=== PATIENT | female | born 1950 | race Caucasian/White ===

== ENCOUNTER → 2016-08-11 | Outpatient (CLI) | payer OTHER ==
[2016-08-11 11:30] LABS: BASOPHILS # (AUTO) 0.01 10*3/UL; BASOPHILS % (AUTO) 0.2 % (0-1); EOSINOPHILS % (AUTO) 0 % (0-8); HEMATOCRIT 40.2 % (37.0-47.0); HEMOGLOBIN 13.3 g/dL (12.0-16.0); IMM GRAN % (AUTO) 0.2 % (0-5); IMM GRAN# (AUTO) 0.01 10*3/UL; LYMPHOCYTES # (AUTO) 1.22 10*3/uL; LYMPHOCYTES % (AUTO) 24.4 % (10-50); MEAN CORPUSCULAR HEMOGLOBIN 30.6 PG (27-31); MEAN CORPUSCULAR HGB CONC 33.1 g/dL (33-37); MEAN PLATELET VOLUME 9.7 FL (7.4-12.2); MONOCYTES # (AUTO) 0.46 10*3/UL (0.3-0.8); MONOCYTES % (AUTO) 9.2 % (5-15); NEUTROPHILS # (AUTO) 3.29 10*3/UL; RDW COEFFICIENT OF VARIATION 14.2 % (11.5-14.5); RED BLOOD COUNT 4.34 10^6/uL (4.20-5.40); WHITE BLOOD COUNT 4.99 10^3/uL (4.8-10.8)
[2016-08-11 11:35] LABS: PLATELET MORPHOLOGY COMMENT NORMAL MORPHOLOGY (NORM)
== END ==
LOC: LAB 11:11
PROVIDERS: ATTEND Internal Medicine
DX: F25.1 Schizoaffective disorder, depressive type (principal)
CPT/HCPCS: 36415; 85025

== ENCOUNTER → 2016-09-15 | Outpatient (CLI) | payer OTHER ==
[2016-09-15 09:57] LABS: BASOPHILS # (AUTO) 0.01 10*3/UL; BASOPHILS % (AUTO) 0.2 % (0-1); EOSINOPHILS % (AUTO) 0 % (0-8); HEMATOCRIT 40.7 % (37.0-47.0); HEMOGLOBIN 13.3 g/dL (12.0-16.0); IMM GRAN % (AUTO) 0.2 % (0-5); IMM GRAN# (AUTO) 0.01 10*3/UL; LYMPHOCYTES # (AUTO) 1.42 10*3/uL; MEAN CORPUSCULAR HGB CONC 32.7 g/dL (33-37); MONOCYTES # (AUTO) 0.42 10*3/UL (0.3-0.8); MONOCYTES % (AUTO) 8.6 % (5-15); NEUTROPHILS # (AUTO) 3.04 10*3/UL; RDW COEFFICIENT OF VARIATION 13.8 % (11.5-14.5); RED BLOOD COUNT 4.43 10^6/uL (4.20-5.40)
[2016-09-15 10:02] LABS: PLATELET MORPHOLOGY COMMENT NORMAL MORPHOLOGY (NORM)
== END ==
LOC: LAB 09:41
PROVIDERS: ATTEND Psychiatry & Neurology Psychiatry
DX: F25.1 Schizoaffective disorder, depressive type (principal); Z79.899 Other long term (current) drug therapy
CPT/HCPCS: 36415; 85025

== ENCOUNTER → 2016-09-29 | Outpatient (CLI) | payer OTHER | LOC: MMPC 11:11 | PROVIDERS: ATTEND Internal Medicine | DX: F20.0 Paranoid schizophrenia (principal); K59.09 Other constipation; C44.319 Basal cell carcinoma of skin of other parts of face | CPT/HCPCS: 99213; G0463 ==

== ENCOUNTER → 2016-10-13 | Outpatient (CLI) | payer OTHER ==
[2016-10-13 07:12] LABS: HEMATOCRIT 43.4 % (37.0-47.0); HEMOGLOBIN 14.2 g/dL (12.0-16.0); MEAN CORPUSCULAR HGB CONC 32.7 g/dL (33-37); MEAN PLATELET VOLUME 9.6 FL (7.4-12.2); RDW COEFFICIENT OF VARIATION 14.5 % (11.5-14.5); RED BLOOD COUNT 4.74 10^6/uL (4.20-5.40); WHITE BLOOD COUNT 6.62 10^3/uL (4.8-10.8)
[2016-10-13 07:33] LABS: BAND NEUTROPHILS % 0 % (0-10); BASOPHILS % (MANUAL) 0 % (0-1); EOSINOPHILS % (MANUAL) 0 % (0-8); LYMPHOCYTES % (MANUAL) 23 % (10-50); MONOCYTES % (MANUAL) 13 % (0-12); NEUTROPHILS % (MANUAL) 64 % (50-80); PLATELET MORPHOLOGY COMMENT NORMAL MORPHOLOGY (NORM)
== END ==
LOC: LAB 06:57
PROVIDERS: ATTEND Psychiatry & Neurology Psychiatry
DX: F25.1 Schizoaffective disorder, depressive type (principal)
CPT/HCPCS: 36415; 85007

== ENCOUNTER 2016-10-14 10:51 | Emergency (ER) | payer OTHER ==
[2016-10-14 11:41] VITALS: RESP 18; TEMP 98.8
[2016-10-14 11:56] LABS: BASOPHILS # (AUTO) 0.01 10*3/UL; BASOPHILS % (AUTO) 0.2 % (0-1); EOSINOPHILS % (AUTO) 0 % (0-8); HEMATOCRIT 42.4 % (37.0-47.0); HEMOGLOBIN 13.9 g/dL (12.0-16.0); IMM GRAN % (AUTO) 0.2 % (0-5); IMM GRAN# (AUTO) 0.01 10*3/UL; LYMPHOCYTES # (AUTO) 1.02 10*3/uL; LYMPHOCYTES % (AUTO) 15.5 % (10-50); MEAN CORPUSCULAR HGB CONC 32.8 g/dL (33-37); MEAN PLATELET VOLUME 10.2 FL (7.4-12.2); MONOCYTES # (AUTO) 0.62 10*3/UL (0.3-0.8); MONOCYTES % (AUTO) 9.4 % (5-15); NEUTROPHILS # (AUTO) 4.93 10*3/UL; NEUTROPHILS % (AUTO) 74.7 % (50-80); RDW COEFFICIENT OF VARIATION 14.4 % (11.5-14.5); RED BLOOD COUNT 4.64 10^6/uL (4.20-5.40); WHITE BLOOD COUNT 6.59 10^3/uL (4.8-10.8)
[2016-10-14 12:02] LABS: BILIRUBIN,TOTAL 0.6 mg/dL (0.3-1.2); CALCIUM 10.4 mg/dL (8.7-10.7); TOTAL PROTEIN 7.4 g/dL (6.1-8.0)
[2016-10-14 12:07] LABS: PLATELET MORPHOLOGY COMMENT NORMAL MORPHOLOGY (NORM)
[2016-10-14] MEDS ORDERED: Sodium Chloride 0.9% 1,000 ML PRIMARY IV ONE (12:09)
--- NOTE | 2016-10-14 21:44 | PDOC ---
Dizziness HPI - General Chief Complaint: Neurological Complaints Stated Complaint: FEELS DIZZY & UNCOORDINATED Date Seen by Provider: 10/14/16 Time Seen by Provider: 10:55 - History of Present Illness Initial Comments: Patient is a very nice 65-year-old woman who is an unfortunate suffer of schizophrenia. She had a long stay in the [facility] and perineal lady was recently released from there. She since that time has been on some lithium that she was encouraged to take by [facility]. In the past she's had difficulty taking lithium. Now she's developed some substantial motor fasciculations and some weakness and different facial tics. She attributes this to the lithium. She has been stable on her other medications for some time. She denies any other substantial symptoms i.e. fever other neurologic issues or problems nausea vomiting urinary symptoms or any other concerns. - Patient Home Medications Home Medications: Home Medications Olanzapine [Zyprexa] 20 mg PO DAILY tab 06/11/16 Benztropine Mesylate [Cogentin] 1 mg PO BID 07/15/16 Clozapine 200 mg PO BID 07/15/16 Bacillus Coagulans [Probiotic] 1 each PO cap 07/29/16 Calcium Carbonate [Tums] 3 tab PO QHS tab 07/29/16 Famotidine [Pepcid] 1 tab-cap PO DAILY #90 tab 07/29/16 Multivitamin [Daily Siva] 1 tab PO DAILY tab 07/29/16 Polyethylene Glycol 3350 [Miralax] 1 packet PO DAILY #1 box 07/29/16 - Patient Allergies Allergies/Adverse Reactions: Allergies Allergy/AdvReac Type Severity Reaction Status Date / Time Penicillins Allergy Intermediate SYNCOPAL Verified 10/14/16 11:50 EPISODES Past Medical History - heen HEENT History: Denies History Cardiovascular History: Denies History Respiratory History: Denies History Gastrointestinal History: Denies History Genitourinary History: Denies History Endocrine History: Denies History Musculoskeletal History: Denies History Prosthesis or Implant: No Neurological History: Denies History Blood Disorders: Denies History Psychiatric History: Schizophrenia Additional Psychiatric History: Paranoid Schizophrenia Cancer History: Skin Cancer Treatment / Date(s) of Treatment: REMOVAL UNKNOWN WHEN In Past Year Been Physically Harmed or Verbally Threatened: No History of MDRO: No Tobacco Use: Never Smoker Alcohol Use: None Substance Use Type: None Previous Surgical History: Yes Type / Date of Surgery: CA REMOVAL Significant Family History: No pertinent family hx Past Medical History Reviewed: Reviewed - No Changes ROS - Limitations ROS Limitations: No Limitations Constitution: REPORTS: Denies Symptoms Cardiovascular: REPORTS: Denies Cardiac Symptoms Respiratory: REPORTS: Denies Resp Symptoms Gastrointestinal: REPORTS: Denies GI Symptoms Dizziness PE - General Appearance General Appearance: POSITIVE: No Acute Distress - HEENT HEENT: POSITIVE: Head Inspection Nml, Eyes Inspection Nml - Neck Neck: POSITIVE: Supple - Respiratory Respiratory: POSITIVE: No Respiratory Distress, Breath Sounds Normal - Cardiovascular Cardiovascular: POSITIVE: Regular Rate & Rhythm, No Murmur - Abdomen Abdomen: Soft: (All Quadrants), Normal Bowel Sounds: (RUQ), (All Quadrants), Denies Tenderness: (All Quadrants) - Skin Skin: POSITIVE: Intact, Normal For Race - Neuro/Psych Neuro/Psych: POSITIVE: Other (Patient has normal movement intact. She has a bit of tremor noted in her upper extremities. She also has diffuse fasciculations occasionally and some facial tics.) Dizziness Progress - Results Reviewed by me Lab Results Reviewed: Yes Lab Results:: Laboratory Results 10/14/16 Range/Units 11:10 WBC 6.59 (4.8-10.8) 10^3/uL RBC 4.64 (4.20-5.40) 10^6/uL Hgb 13.9 (12.0-16.0) g/dL Hct 42.4 (37.0-47.0) % MCV 91.4 (81-99) FL MCH 30.0 (27-31) PG MCHC 32.8 L (33-37) g/dL RDW Std Deviation 47.2 (39-50) fL RDW Coeff of Fawad 14.4 (11.5-14.5) % Plt Count 228 (140-350) 10*3/uL MPV 10.2 (7.4-12.2) FL Immature Gran % (Auto) 0.2 (0-5) % Neut % (Auto) 74.7 (50-80) % Lymph % (Auto) 15.5 (10-50) % [place] % (Auto) 9.4 (5-15) % Eos % (Auto) 0 (0-8) % Baso % (Auto) 0.2 (0-1) % Immature Gran # (Auto) 0.01 10*3/UL Neut # (Auto) 4.93 10*3/UL Lymph # (Auto) 1.02 10*3/uL [place] # (Auto) 0.62 (0.3-0.8) 10*3/UL Eos # (Auto) 0 10*3/UL Baso # (Auto) 0.01 10*3/UL WBC Morphology Comment Normal morphology (NORM) Plt Morphology Comment Normal morphology (NORM) RBC Morph Comment Normal morphology (NORM) Sodium 142 (135-145) meq/L Potassium 4.0 (3.8-5.2) meq/L Chloride 104 (98-112) meq/L Carbon Dioxide 26 (23-33) meq/L Anion Gap 12 (5-20) BUN 19 (7-22) mg/dL Creatinine 1.0 (0.50-1.20) mg/dL Estimated GFR 55 (>60 ml/min/1.73m(2)) BUN/Creatinine Ratio 19.00 (6-20) Glucose 95 (78-110) mg/dL Calculated Osmolality 295.0 H (267-292) mOsm/kg Calcium 10.4 (8.7-10.7) mg/dL Total Bilirubin 0.6 (0.3-1.2) mg/dL AST 40 H (8-39) IU/L ALT 54 H (9-52) IU/L Alkaline Phosphatase 118 (38-126) IU/L Total Protein 7.4 (6.1-8.0) g/dL Albumin 4.4 (3.5-4.8) g/dL Globulin 3.0 (2.50-4.10) g/dL Albumin/Globulin Ratio 1.40 (1.3-2.0) mg/g TSH 2.51 (0.2700-4.2000) uIU/mL - Patient's Progress MDM / ED Course: Labs were performed to rule out electrolyte abnormalities or any obvious other issues. These all appear benign. This is likely related to her lithium therapy. Have asked her stop taking lithium lithium level is pending but is a send out here. She will hopefully resolve simply with the cessation of the lithium. Not she knows she needs to be reevaluated by her primary care provider and her psychiatrist. Patient Care Time - Estimated PCT Patient Care Time (In Minutes): 20 Vital Signs - VS Reviewed Vital Signs Reviewed: Yes Discharge Clinical Impression: Drug reaction Discharge Disposition: Discharged to Home Condition: Good Patient Instructions Given at Discharge: Adverse Drug Reaction (ED) Additional Instructions: Stop taking lithium Discuss your medication regimen with your primary care provider Follow-up with your primary care provider in the next couple of days Have your primary care provider review the lithium level that was taken here today see your psychiatrist as soon as possible to discuss your stoppage of lithium and to consider other medication changes Follow Up With: NONE,NONE [Primary Care Provider] -
== END 2016-10-14 13:17 | disposition home or self-care (01) ==
LOC: ER 10:51
DX: T43.595A Adverse effect of other antipsychotics and neuroleptics, initial encounter (principal); F20.0 Paranoid schizophrenia; R42 Dizziness and giddiness
CPT/HCPCS: 80053; 80178; 84443; 85025; 99282; J7030

== ENCOUNTER 2016-10-16 10:28 | Emergency (ER) | payer OTHER ==
[2016-10-16 10:50] VITALS: RESP 20; TEMP 97.1
[2016-10-16] MEDS ORDERED: Sodium Chloride 0.9% 1,000 ML PRIMARY IV ONE (10:59)
--- NOTE | 2016-10-16 11:03 | PDOC ---
Gen Adult / Medical Screen HPI - General Chief Complaint: General Medical Stated Complaint: FORGETFULNESS, UNSTEADY ON HER FEET Date Seen by Provider: 10/16/16 Time Seen by Provider: 11:02 Source: POSITIVE: Patient, [facility] records Exam Limitations: POSITIVE: No limitations Nurse's Notes Reviewed & Considered: Yes - Indicators Temperature Between 95 and 101 Degrees: Yes Respirations Between 12 and 20: Yes Blood Pressure Between 100-165 (sys) and 60-100 (zacarias): Yes Pulse Range Between 60-105 (100 for age > 60 years): Yes Severe Pain (Greater than 5/10 Reported): No Chest or Abdominal Pain: No Inability to Walk: Yes (difficulty walking) Pt Reports Active High Risk Cond. (TB/Hepatitis/HIV/Chemo): No Abnormal Mental Status: Yes (ration alert and oriented to person and place.) - History of Present Illness Initial Comments: Patient is brought in today because of increasing signs of neurological impairment. She is presently having tics of her face and extremities. Her lithium was stopped a few days ago at the time she was seen here in the emergency department. Her lithium level at that time was 0.7. Her son reports that years ago in the past she was on lithium and that she did not tolerate lithium at all, with similar symptoms as being experienced now. She denies any headache, sore throat, chest pain, shortness of breath, she does have a slight cough. She denies any nausea vomiting or diarrhea, fever chills or sweats, no rashes. She does have decreased urine output with dark colored urine. She denies dysuria. Body Location Affected: REPORTS: Upper Extremity (L), Upper Extremity (R), Lower Extremity (L), Lower Extremity (R), Face Timing: REPORTS: Constant Duration: Unknown Similar Symptoms Previously: Yes Recent Care Received: REPORTS: Recently Seen, Treated by MD Any Prior Injuries Related to Current Complaint?: No - Patient Home Medications Home Medications: Home Medications Olanzapine [Zyprexa] 20 mg PO DAILY tab 06/11/16 Benztropine Mesylate [Cogentin] 1 mg PO BID 07/15/16 Clozapine 200 mg PO BID 07/15/16 Bacillus Coagulans [Probiotic] 1 each PO DAILY cap 07/29/16 Calcium Carbonate [Tums] 3 tab PO QHS tab 07/29/16 Famotidine [Pepcid] 1 tab-cap PO DAILY #90 tab 07/29/16 Multivitamin [Daily Siva] 1 tab PO DAILY tab 07/29/16 Polyethylene Glycol 3350 [Miralax] 1 packet PO DAILY #1 box 07/29/16 - Patient Allergies Allergies/Adverse Reactions: Allergies Allergy/AdvReac Type Severity Reaction Status Date / Time Penicillins Allergy Intermediate SYNCOPAL Verified 10/16/16 10:38 EPISODES Past Medical History - heen HEENT History: Denies History Cardiovascular History: Denies History Respiratory History: Denies History Gastrointestinal History: GERD Genitourinary History: Denies History Endocrine History: Denies History Musculoskeletal History: Denies History Prosthesis or Implant: No Neurological History: Denies History Blood Disorders: Denies History Psychiatric History: Schizophrenia Additional Psychiatric History: Paranoid Schizophrenia Cancer History: Skin Cancer Treatment / Date(s) of Treatment: REMOVAL UNKNOWN WHEN In Past Year Been Physically Harmed or Verbally Threatened: No History of MDRO: No Tobacco Use: Never Smoker Alcohol Use: None Substance Use Type: None Previous Surgical History: Yes Type / Date of Surgery: CA REMOVAL LEFT SIDE OF FACE. LEFT ARM SURGERY Significant Family History: No pertinent family hx ROS - Limitations ROS Limitations: No Limitations Constitution: REPORTS: Denies Symptoms Cardiovascular: REPORTS: Denies Cardiac Symptoms Respiratory: REPORTS: Cough Non Productive Neurological: REPORTS: Confusion, Other (Facial and extremity tics) Gastrointestinal: REPORTS: Denies GI Symptoms Endocrine: REPORTS: Denies Symptoms Musculoskeletal: REPORTS: Denies MS Symptoms Genitourinary: REPORTS: Denies Symptoms Skin: REPORTS: Denies Skin Symptoms Lympathic: REPORTS: Denies Lympathic Symptoms Immunologic: POSITIVE: Denies Symptoms Psychiatric: POSITIVE: Denies Psych Symptoms Gen Adult/Medical Screen Exam - General Appearance General Appearance: POSITIVE: Alert, Cooperative, No Acute Distress, No Evidence of Trauma - HEENT HEENT: POSITIVE: Head Inspection Nml, Eyes Inspection Nml, Ears Inspection Nml, Nose Inspection Nml, Oral/Dental Inspect. Nml, Pharynx Inspect. Nml, PERRL, EOMI - Pupils Pupil Size: 3 mm: Bilateral - Neck Neck: POSITIVE: Normal Inspection, Thyroid Normal - Respiratory Respiratory: POSITIVE: No Respiratory Distress, Breath Sounds Normal, Chest Non- Tender - Cardiovascular Cardiovascular: POSITIVE: Regular Rate & Rhythm, No Murmur, No Gallop, PMI Normal - Abdomen Abdomen: Soft: (All Quadrants), Normal Bowel Sounds: (All Quadrants), Denies Tenderness: (All Quadrants) - Back Back: POSITIVE: Normal Inspection - Neurological / Psychological Mental Status: POSITIVE: Mood Normal, Affect Normal Orientation: POSITIVE: Disoriented to Time Reflexes: Patellar (R): 4+, Patellar (L): 4+, Radial (R): 4+, Radial (L): 4+ - Skin Skin: POSITIVE: Normal Color, Warm, Dry, No Rash - Extremities Extremity: Non-Tender: (All Extremities), Normal ROM: (All Extremities), Normal Inspection: (All Extremities) Procedures - Laceration/Wound Repair Did patient have a laceration repair: No Gen Adlt/Medical Scrn Progress - Results Reviewed by me Xrays/CTs/US Reviewed by me: Yes Discussed with Radiologist: Yes Lab Results Reviewed: Yes Lab Results:: Laboratory Results 10/16/16 Range/Units 11:13 WBC 5.54 (4.8-10.8) 10^3/uL RBC 4.37 (4.20-5.40) 10^6/uL Hgb 13.0 (12.0-16.0) g/dL Hct 39.8 (37.0-47.0) % MCV 91.1 (81-99) FL MCH 29.7 (27-31) PG MCHC 32.7 L (33-37) g/dL RDW Std Deviation 46.4 (39-50) fL RDW Coeff of Fawad 14.3 (11.5-14.5) % Plt Count 232 (140-350) 10*3/uL MPV 9.8 (7.4-12.2) FL Immature Gran % (Auto) 0 (0-5) % Neut % (Auto) 72.3 (50-80) % Lymph % (Auto) 16.1 (10-50) % [place] % (Auto) 11.4 (5-15) % Eos % (Auto) 0 (0-8) % Baso % (Auto) 0.2 (0-1) % Immature Gran # (Auto) 0 10*3/UL Neut # (Auto) 4.01 10*3/UL Lymph # (Auto) 0.89 10*3/uL [place] # (Auto) 0.63 (0.3-0.8) 10*3/UL Eos # (Auto) 0 10*3/UL Baso # (Auto) 0.01 10*3/UL WBC Morphology Comment Normal morphology (NORM) Plt Morphology Comment Normal morphology (NORM) RBC Morph Comment Normal morphology (NORM) Sodium 138 (135-145) meq/L Potassium 4.6 (3.8-5.2) meq/L Chloride 103 (98-112) meq/L Carbon Dioxide 26 (23-33) meq/L Anion Gap 9 (5-20) BUN 21 (7-22) mg/dL Creatinine 1.0 (0.50-1.20) mg/dL Estimated GFR 55 (>60 ml/min/1.73m(2)) BUN/Creatinine Ratio 21.00 H (6-20) Glucose 106 (78-110) mg/dL Calculated Osmolality 288.0 (267-292) mOsm/kg Calcium 10.0 (8.7-10.7) mg/dL Magnesium 2.2 (1.6-2.4) mg/dL Total Bilirubin 0.5 (0.3-1.2) mg/dL AST 37 (8-39) IU/L ALT 47 (9-52) IU/L Alkaline Phosphatase 102 (38-126) IU/L Total Protein 6.5 (6.1-8.0) g/dL Albumin 4.0 (3.5-4.8) g/dL Globulin 2.4 L (2.50-4.10) g/dL Albumin/Globulin Ratio 1.60 (1.3-2.0) mg/g - Patient's Progress Pain Medication Addressed: POSITIVE: Not Applicable Re-Examine Time: 12:03 Status: POSITIVE: Improved MDM / ED Course: Patient was evaluated, an IV started, blood drawn and sent to the lab for studies, radiographic examinations were obtained. Next Findings: CBC is unremarkable, comprehensive metabolic panel within normal limits, CT scan of her head shows no acute intracranial abnormalities. Assessment:Tics related to lithium intolerance. Plan: Discharge home, stop lithium. Follow-up with primary care physician. - Consult Counseled: POSITIVE: Patient, RE: Lab Results, RE: Radiology Results, RE: DX, RE : Need for F/U Patient Care Time - Estimated PCT Patient Care Time (In Minutes): 30 Vital Signs - Recent Vital Signs Vital Signs: Vital Signs (Last 8 hours) Temp Pulse Resp BP Pulse Ox 10/16/16 10:43 97.1 F 84 20 112/78 97 - VS Reviewed Vital Signs Reviewed: Yes Discharge Clinical Impression: Drug-induced tics Discharge Disposition: Discharged to Home Condition: Stable Patient Instructions Given at Discharge: Tic Disorder (ED)
[2016-10-16 11:16] LABS: BASOPHILS # (AUTO) 0.01 10*3/UL; BASOPHILS % (AUTO) 0.2 % (0-1); EOSINOPHILS % (AUTO) 0 % (0-8); HEMATOCRIT 39.8 % (37.0-47.0); IMM GRAN % (AUTO) 0 % (0-5); IMM GRAN# (AUTO) 0 10*3/UL; LYMPHOCYTES # (AUTO) 0.89 10*3/uL; LYMPHOCYTES % (AUTO) 16.1 % (10-50); MEAN CORPUSCULAR HEMOGLOBIN 29.7 PG (27-31); MEAN CORPUSCULAR HGB CONC 32.7 g/dL (33-37); MEAN PLATELET VOLUME 9.8 FL (7.4-12.2); MONOCYTES # (AUTO) 0.63 10*3/UL (0.3-0.8); MONOCYTES % (AUTO) 11.4 % (5-15); NEUTROPHILS # (AUTO) 4.01 10*3/UL; NEUTROPHILS % (AUTO) 72.3 % (50-80); RDW COEFFICIENT OF VARIATION 14.3 % (11.5-14.5); RED BLOOD COUNT 4.37 10^6/uL (4.20-5.40); WHITE BLOOD COUNT 5.54 10^3/uL (4.8-10.8)
[2016-10-16 11:22] LABS: PLATELET MORPHOLOGY COMMENT NORMAL MORPHOLOGY (NORM)
[2016-10-16 11:42] LABS: BILIRUBIN,TOTAL 0.5 mg/dL (0.3-1.2); MAGNESIUM 2.2 mg/dL (1.6-2.4); POTASSIUM 4.6 meq/L (3.8-5.2); TOTAL PROTEIN 6.5 g/dL (6.1-8.0)
[2016-10-16] MEDS ORDERED: LORazepam 2 MG/1 ML VIAL IVP ONE (12:02)
[2016-10-16] MEDS ORDERED: LORazepam 2 MG/1 ML VIAL ONE (12:04)
--- NOTE | 2016-10-16 12:08 | DI ---
CT HEAD SCAN WITHOUT IV CONTRAST, 10/16/2016 10:59 AM : Clinical History: Acute mental status change. Previous Exam: None at this facility. Scans are obtained from the foramen magnum to the vertex without IV contrast. The 4th, 3rd, and lateral ventricles are of normal size, shape, position, and contour for the patient 's age. There are no abnormal areas of increased or decreased density. Specifically, there is no evid ence of an acute hemorrhagic or bland infarct. There is mild cerebral atrophy. There are no extracere bral mantles or shift of the midline structures. Bone window evaluation is normal. The paranasal sinu ses are normal. READIN. Normal non contrast CT head scan. 2. Mild cerebral atrophy appropriate for the patient's age.
== END 2016-10-16 12:35 | disposition home or self-care (01) ==
LOC: ER 10:28
DX: G25.61 Drug induced tics (principal); T43.595A Adverse effect of other antipsychotics and neuroleptics, initial encounter
CPT/HCPCS: 70450; 80053; 80178; 83735; 84443; 85025; 96361; 96374; 99283; J2060; J7030

== ENCOUNTER → 2016-10-21 | Outpatient (CLI) | payer OTHER | LOC: MMPC 11:11 | PROVIDERS: ATTEND Internal Medicine | DX: T56.891D Toxic effect of other metals, accidental (unintentional), subsequent encounter (principal); F20.0 Paranoid schizophrenia; K59.09 Other constipation | CPT/HCPCS: 99213; G0463 ==

== ENCOUNTER 2016-11-04 09:02 | Emergency (ER) | payer OTHER ==
[2016-11-04] MEDS ORDERED: cefTRIAXone Inj 1 GM in Sodium Chloride 0.9% 100 ML IV ONE (09:24)
[2016-11-04 09:28] VITALS: RESP 16; TEMP 97.6
[2016-11-04] MEDS: NORMAL SALINE 10 ML SYRINGE FLUSH IVP PRN ×2 (09:29→10:18)
--- NOTE | 2016-11-04 09:51 | PDOC ---
Sore Throat/Dental Pain HPI - General Chief Complaint: Nasal/Mouth Problem /Injury Stated Complaint: DENTAL PAIN Date Seen by Provider: 11/04/16 Time Seen by Provider: 09:05 Source: POSITIVE: Patient, Other ([employer] from a [facility] at which patient resides) Exam Limitations: POSITIVE: No limitations Nurse's Notes Reviewed & Considered: Yes - History of Present Illness Initial Comments: The patient is a 65-year-old female. She has a history of schizophrenia and is presently a resident at a local [facility]. For the past 2 months, approximately, she has had pain in her left upper teeth. She saw her dentist yesterday and she and her dentist or trying to make financial arrangements, apparently for dental extraction. Yesterday she developed swelling to the left side of her face below her eye. She has some subsequent left lower periorbital edema. No fevers or chills. No head or neck pain. No difficulty swallowing or breathing. Location: Dental (Upper) Timing: REPORTS: Gradual, Getting Worse Duration: >1 week (Symptomatic for approximately 2 weeks) Severity: Moderate Quality: REPORTS: "Pain" Context: DENIES: Foreign Body, Ingestion, Fractured Tooth, Other Modifying Factors: improves with: Other (Direct palpation) Associated Symptoms: REPORTS: Toothache (Left upper), Facial Pain (Left side of face), Swollen Face (Left side of face) Similar Symptoms Previously: Yes Recently seen/treated/hospitalized: Yes Any Prior Injuries Related to Current Complaint?: No - Patient Home Medications Home Medications: Home Medications Olanzapine [Zyprexa] 20 mg PO DAILY tab 06/11/16 Benztropine Mesylate [Cogentin] 1 mg PO BID 07/15/16 Clozapine 200 mg PO BID 07/15/16 Bacillus Coagulans [Probiotic] 1 each PO DAILY cap 07/29/16 Calcium Carbonate [Tums] 3 tab PO QHS tab 07/29/16 Famotidine [Pepcid] 1 tab-cap PO DAILY #90 tab 07/29/16 Multivitamin [Daily Siva] 1 tab PO DAILY tab 07/29/16 Polyethylene Glycol 3350 [Miralax] 1 packet PO DAILY #1 box 07/29/16 Clindamycin HCl 300 mg PO Q6H #40 capsule 11/04/16 - Patient Allergies Allergies/Adverse Reactions: Allergies Allergy/AdvReac Type Severity Reaction Status Date / Time Penicillins Allergy Intermediate SYNCOPAL Verified 11/04/16 09:05 EPISODES Past Medical History - heen HEENT History: Denies History Cardiovascular History: Denies History Respiratory History: Denies History Gastrointestinal History: GERD Genitourinary History: Denies History Endocrine History: Denies History Musculoskeletal History: Denies History Prosthesis or Implant: No Neurological History: Denies History Blood Disorders: Denies History Psychiatric History: Schizophrenia Additional Psychiatric History: Paranoid Schizophrenia Female Reproductive History: Denies History Obstetrical History: Denies History Cancer History: Skin Cancer Treatment / Date(s) of Treatment: REMOVAL UNKNOWN WHEN In Past Year Been Physically Harmed or Verbally Threatened: No History of MDRO: No Tobacco Use: Never Smoker Alcohol Use: None Substance Use Type: None Previous Surgical History: Yes Type / Date of Surgery: CA REMOVAL LEFT SIDE OF FACE. LEFT ARM SURGERY Significant Family History: No pertinent family hx Past Medical History Reviewed: Reviewed - No Changes ROS - Limitations ROS Limitations: No Limitations Constitution: REPORTS: Denies Symptoms Cardiovascular: REPORTS: Denies Cardiac Symptoms Respiratory: REPORTS: Denies Resp Symptoms Neurological: REPORTS: Denies Neuro Symptoms Gastrointestinal: REPORTS: Denies GI Symptoms Endocrine: REPORTS: Denies Symptoms Musculoskeletal: REPORTS: Denies MS Symptoms Genitourinary: REPORTS: Denies Symptoms Eyes: REPORTS: Denies Symptoms ENT: REPORTS: Dental Pain (Left upper) Skin: REPORTS: Other (Swelling and some erythema to left side of face below her left eye) Lympathic: REPORTS: Denies Lympathic Symptoms Immunologic: POSITIVE: Denies Symptoms Psychiatric: POSITIVE: Denies Psych Symptoms Sore Throat/Dental Pain Exam - General Appearance General Appearance: REPORTS: Alert, Cooperative, No Acute Distress, No Evidence of Trauma - HEENT Head / Face: POSITIVE: Facial Swelling (Left side of face below left eye), Facial Erythema (Mild, left side of face below left eye), Tenderness (Left side of face below left eye) Eyes: POSITIVE: Inspection Normal, PERRL, EOM's Intact, Eyelids Uninjured, Conjunctivae Uninjured, No Nystagmus, No Globe Trauma, Sclera Normal, Normal Corneal Inspection Ears: POSITIVE: Ears Normal Inspection, TM Normal Inspection, Auricle Normal, External Canal Normal Nose: POSITIVE: Inspection Normal, No Apparent Trauma, Nares Normal, No CSF Leak Oropharynx: POSITIVE: External Inspection Nml, Pharynx Inspect. Nml, Airway Intact, Voice Normal, Moist Mucous Membranes, No Oral Injury, Lips Normal, Gums Normal, No Drooling, No Thrush, Normal Gag Reflex Neck: POSITIVE: Supple, Normal Inspection, Non Tender Dental: POSITIVE: Dental Caries (Severe), Dental Tenderness (Left upper first and second molars tender; first molar loose. Widespread gum disease and pyorrhea), Widespread Dental Decay - Respiratory Respiratory: REPORTS: No Respiratory Distress, Breath Sounds Normal, No Pleuritic Chest Pain, Speaks Full Sentences, No Pain on Inspiration - Cardiovascular Cardiovascular: REPORTS: Regular Rate and Rhythm, Heart Sounds Normal, Equal Pulses, Strong Pulses Peripheral Pulses: Radial (R): 2+, Radial (L): 2+ - Abdomen Abdomen: Soft: (All Quadrants), Normal Bowel Sounds: (All Quadrants), Denies Tenderness: (All Quadrants), No Splenomegaly: (All Quadrants), No Hepatomegaly: (All Quadrants), No Guarding: (All Quadrants), No Rebound: (All Quadrants), No Palpable Pulse: (All Quadrants), No Palpabale Mass: (All Quadrants), No Distention: (All Quadrants), No Rigidity: (All Quadrants) - Extremities Extremity: Non-Tender: (All Extremities), Normal ROM: (All Extremities), Normal Inspection: (All Extremities) - Skin Skin: REPORTS: Erythema (Left side of face below left eye secondary to dental abscess) - Neurological / Psychological Neurological: POSITIVE: Oriented X3, 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 Patient discharged on clindamycin 300 mg 4 times daily orally. Patient to return to the emergency room for reevaluation in approximately 24 hours. 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), RE: DX, RE: Need for F/U Patient Care Time - Estimated PCT Patient Care Time (In Minutes): 25 Vital Signs - Recent Vital Signs Vital Signs: Vital Signs (Last 8 hours) Temp Pulse Resp BP Pulse Ox 11/04/16 09:02 97.6 F 101 H 16 88/65 96 - VS Reviewed Vital Signs Reviewed: Yes Discharge Clinical Impression: Dental abscess Discharge Disposition: Discharged to Home Condition: Fair Prescriptions / Orders: Clindamycin HCl 300 mg PO Q6H #40 capsule Patient Instructions Given at Discharge: Dental Abscess (ED) Additional Instructions: You have a severe dental abscess of 2 of your left upper teeth, with associated severe gum disease. Take clindamycin, one every 6 hours, which is 4 tablets daily. Tylenol or Advil for pain. Soft diet. Return tomorrow for reevaluation and probably another dose of intravenous antibiotic. Return sooner anytime if condition worsens in any way. Follow-up with your dentist as soon as possible. Follow Up With: SALONI SWANSON [Primary Care Provider] - (Follow-up with your dentist as soon as possible. Medications and instructions as above. Return tomorrow for reevaluation. Return here anytime if condition worsens in any way.)
== END 2016-11-04 10:18 | disposition home or self-care (01) ==
LOC: ER 09:02
DX: K04.7 Periapical abscess without sinus (principal); K08.89 Other specified disorders of teeth and supporting structures
CPT/HCPCS: 96365; 99282; J0696; J7050

== ENCOUNTER 2016-11-05 08:40 | Emergency (ER) | payer OTHER ==
[2016-11-05] MEDS ORDERED: cefTRIAXone Inj 1 GM in Sodium Chloride 0.9% 100 ML IV ONE (08:51)
--- NOTE | 2016-11-05 09:12 | PDOC ---
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 Patient was given Rocephin 1 g IV yesterday in the emergency room and was started on clindamycin, 300 mg 4 times daily. She was asked to return to the emergency room today for reevaluation. Patient states she is having less pain and the redness on the left side of her face is practically resolved; she still has some swelling. She states she's not had any fevers, chills, headache, neck pain, or difficulty swallowing or breathing. Have you received a tetanus shot in the past 10 years?: Unknown Body Location Affected: REPORTS: Face, Other (Left upper dentition) Previous Treatment: REPORTS: Antibiotics Given IM, Antibiotics Given PO/RX Treated on (date): 11/04/16 Treated at (time): 09:00 Symptoms Since Procedure: REPORTS: No Complaints, Other (Pain swelling and redness less today) Severity: Moderate Quality: REPORTS: "Pain" (Dental pain) Any Prior Injuries Related to Current Complaint?: No - Patient Home Medications Home Medications: Home Medications Olanzapine [Zyprexa] 20 mg PO DAILY tab 06/11/16 Benztropine Mesylate [Cogentin] 1 mg PO BID 07/15/16 Clozapine 200 mg PO BID 07/15/16 Bacillus Coagulans [Probiotic] 1 each PO DAILY cap 07/29/16 Calcium Carbonate [Tums] 3 tab PO QHS tab 07/29/16 Famotidine [Pepcid] 1 tab-cap PO DAILY #90 tab 07/29/16 Multivitamin [Daily Siva] 1 tab PO DAILY tab 07/29/16 Polyethylene Glycol 3350 [Miralax] 1 packet PO DAILY #1 box 07/29/16 Clindamycin HCl 300 mg PO Q6H #40 capsule 11/04/16 - Patient Allergies Allergies/Adverse Reactions: Allergies Allergy/AdvReac Type Severity Reaction Status Date / Time Penicillins Allergy Intermediate SYNCOPAL Verified 11/05/16 08:46 EPISODES Past Medical History - heen HEENT History: Denies History Cardiovascular History: Denies History Respiratory History: Denies History Gastrointestinal History: GERD Genitourinary History: Denies History Endocrine History: Denies History Musculoskeletal History: Denies History Prosthesis or Implant: No Neurological History: Denies History Blood Disorders: Denies History Psychiatric History: Schizophrenia Additional Psychiatric History: Paranoid Schizophrenia Cancer History: Skin Cancer Treatment / Date(s) of Treatment: REMOVAL UNKNOWN WHEN History of MDRO: No Alcohol Use: None Substance Use Type: None Previous Surgical History: Yes Type / Date of Surgery: CA REMOVAL LEFT SIDE OF FACE. LEFT ARM SURGERY Significant Family History: No pertinent family hx Past Medical History Reviewed: Reviewed - No Changes ROS - Limitations ROS Limitations: No Limitations Constitution: REPORTS: Denies Symptoms Cardiovascular: REPORTS: Denies Cardiac Symptoms Respiratory: REPORTS: Denies Resp Symptoms Neurological: REPORTS: Denies Neuro Symptoms Gastrointestinal: REPORTS: Denies GI Symptoms Endocrine: REPORTS: Denies Symptoms Musculoskeletal: REPORTS: Denies MS Symptoms Genitourinary: REPORTS: Denies Symptoms Eyes: REPORTS: Denies Symptoms ENT: REPORTS: Dental Pain Skin: REPORTS: Other (Swelling left side of face below I) Lympathic: REPORTS: Denies Lympathic Symptoms Immunologic: POSITIVE: Denies Symptoms Psychiatric: POSITIVE: Denies Psych Symptoms Wound/Burn Recheck Exam - General Appearance General Appearance: POSITIVE: Alert, Cooperative, No Acute Distress, No Evidence of Trauma - Neuro/Vascular/Tendon Neuro/Vascular/Tendon: POSITIVE: No Vascular Compromise, Motor Normal, Sensation Normal, ROM Normal, No Tendon Injury, No Pulse Deficit - Skin Skin: POSITIVE: Warmth, Tenderness, See Diagram - HEENT HEENT: POSITIVE: Head Inspection Nml, Eyes Inspection Nml, Ears Inspection Nml, Nose Inspection Nml, Oral/Dental Inspect. Nml, Pharynx Inspect. Nml, PERRL, EOMI - Pupil Size Pupil Size: 4 mm: Bilateral - Neck Neck/Back: POSITIVE: Normal Inspection, Non-Tender, Painless ROM - Respiratory / CVS Respiratory / CVS: POSITIVE: Chest Non Tender, No Ecchymosis, Breath Sounds Normal, No Respiratory Distress, Heart Sounds Normal, Regular Rate/Rhythm Peripheral Pulses: Radial (R): 2+, Radial (L): 2+ Images - Head Head: 1 - Swelling and redness; less than yesterday - Dental Dental: 1 - Abscess involving left upper first and second molar; first molar is quite loose. Diffuse severe gingivitis. Wound/Burn Recheck Progress - Patient's Progress Pain Medication Addressed: POSITIVE: Yes (Recommended Advil or Tylenol) School/Work Release Addressed: POSITIVE: Not Applicable Re-Examine Time:: 09:15 Re-Examine Comment: 1 more gram of Rocephin ordered. 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 Return in approximately 24 hours for reevaluation. Return sooner anytime if condition worsens in any way. Follow Up With: SALONI SWANSON [Primary Care Provider] - (Return to the emergency room in approximately 24 hours for reevaluation, or sooner if condition worsens in any way. Follow-up with your dentist as soon as possible.)
[2016-11-05 09:48] VITALS: RESP 15; TEMP 96.7
== END 2016-11-05 09:46 | disposition home or self-care (01) ==
LOC: ER 08:40
DX: K04.7 Periapical abscess without sinus (principal); K05.10 Chronic gingivitis, plaque induced; L03.211 Cellulitis of face
CPT/HCPCS: 96365; 99282; J0696; J7050

== ENCOUNTER 2016-11-06 09:05 | Emergency (ER) | payer OTHER ==
[2016-11-06] MEDS ORDERED: cefTRIAXone Inj 1 GM in Sodium Chloride 0.9% 100 ML IV ONE (09:06)
--- NOTE | 2016-11-06 09:26 | PDOC ---
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 Please refer to previous emergency room notes. Patient had seen her dentist earlier that day , and patient and dentist working to try to find some type of dental insurance coverage. Patient was started on clindamycin 300 mg 4 times daily. She was given Rocephin 1 g on November 04 and 1 g on November 05. Patient is in the emergency room for reevaluation. Swelling to the left side of the face below the eye has gone down considerably. Cutaneous redness is almost completely resolved. Patient now has minimal discomfort. No fevers or chills. No head or neck pain. No difficulty breathing or swallowing. Have you received a tetanus shot in the past 10 years?: Unknown Body Location Affected: REPORTS: Other (Left upper first and second molars and left side of face below the eye) Previous Treatment: REPORTS: Antibiotics Given IV, Antibiotics Given PO/RX Treated on (date): 11/04/16 Treated at (time): 09:00 Symptoms Since Procedure: REPORTS: No Complaints, Other (Pain resolved. Redness and swelling left side of face diminishing.) Severity: Moderate Quality: DENIES: Aching, Burning, Cramping, Dullness, Fullness, "Pain", Sharpness, Stabbing, Throbbing, Tenderness, Itching, Pressure, Other Any Prior Injuries Related to Current Complaint?: No - Patient Home Medications Home Medications: Home Medications Olanzapine [Zyprexa] 20 mg PO DAILY tab 06/11/16 Benztropine Mesylate [Cogentin] 1 mg PO BID 07/15/16 Clozapine 200 mg PO BID 07/15/16 Bacillus Coagulans [Probiotic] 1 each PO DAILY cap 07/29/16 Calcium Carbonate [Tums] 3 tab PO QHS tab 07/29/16 Famotidine [Pepcid] 1 tab-cap PO DAILY #90 tab 07/29/16 Multivitamin [Daily Siva] 1 tab PO DAILY tab 07/29/16 Polyethylene Glycol 3350 [Miralax] 1 packet PO DAILY #1 box 07/29/16 Clindamycin HCl 300 mg PO Q6H #40 capsule 11/04/16 - Patient Allergies Allergies/Adverse Reactions: Allergies Allergy/AdvReac Type Severity Reaction Status Date / Time Penicillins Allergy Intermediate SYNCOPAL Verified 11/06/16 09:19 EPISODES Past Medical History - heen HEENT History: Denies History Cardiovascular History: Denies History Respiratory History: Denies History Gastrointestinal History: GERD Genitourinary History: Denies History Endocrine History: Denies History Musculoskeletal History: Denies History Prosthesis or Implant: No Neurological History: Denies History Blood Disorders: Denies History Psychiatric History: Schizophrenia Additional Psychiatric History: Paranoid Schizophrenia History of Sexually Transmitted Diseases: No Cancer History: Skin Cancer Treatment / Date(s) of Treatment: REMOVAL UNKNOWN WHEN History of MDRO: No History of Other Communicable Diseases: No Alcohol Use: None Substance Use Type: None Previous Surgical History: Yes Type / Date of Surgery: CA REMOVAL LEFT SIDE OF FACE. LEFT ARM SURGERY Anesthesia Reactions: No Malignant Hyperthermia: No Significant Family History: No pertinent family hx Past Medical History Reviewed: Reviewed - No Changes ROS - Limitations ROS Limitations: No Limitations Constitution: REPORTS: Denies Symptoms Cardiovascular: REPORTS: Denies Cardiac Symptoms Respiratory: REPORTS: Denies Resp Symptoms Neurological: REPORTS: Denies Neuro Symptoms Gastrointestinal: REPORTS: Denies GI Symptoms Endocrine: REPORTS: Denies Symptoms Musculoskeletal: REPORTS: Denies MS Symptoms Genitourinary: REPORTS: Denies Symptoms Eyes: REPORTS: Denies Symptoms ENT: REPORTS: Dental Pain (With dental abscess as above; see history of present illness.) Skin: REPORTS: Other (Swelling and redness, left side of face resolving) Lympathic: REPORTS: Denies Lympathic Symptoms Immunologic: POSITIVE: Denies Symptoms Psychiatric: POSITIVE: Denies Psych Symptoms Wound/Burn Recheck Exam - General Appearance General Appearance: POSITIVE: Alert, Cooperative, No Acute Distress, No Evidence of Trauma - Neuro/Vascular/Tendon Neuro/Vascular/Tendon: POSITIVE: No Vascular Compromise, Motor Normal, Sensation Normal, ROM Normal, No Tendon Injury, No Pulse Deficit - Skin Skin: POSITIVE: See Diagram. NEGATIVE: Expanding Cellulitis (Decreased erythema left side of face), Increased Swelling (Decreased swelling) - HEENT HEENT: POSITIVE: Head Inspection Nml, Eyes Inspection Nml, Ears Inspection Nml, Nose Inspection Nml, Oral/Dental Inspect. Nml, Pharynx Inspect. Nml, PERRL, EOMI - Pupil Size Pupil Size: 3 mm: Bilateral (PERRLA) - Neck Neck/Back: POSITIVE: Normal Inspection, Non-Tender, Painless ROM - Respiratory / CVS Respiratory / CVS: POSITIVE: Chest Non Tender, No Ecchymosis, Breath Sounds Normal, No Respiratory Distress, Heart Sounds Normal, Regular Rate/Rhythm Peripheral Pulses: Radial (R): 2+, Radial (L): 2+ - Abdomen Abdomen: Soft: (All Quadrants), Normal Bowel Sounds: (All Quadrants), Denies Tenderness: (All Quadrants), No Splenomegaly: (All Quadrants), No Hepatomegaly: (All Quadrants), No Guarding: (All Quadrants), No Rebound: (All Quadrants), No Palpable Pulse: (All Quadrants), No Palpabale Mass: (All Quadrants), No Distention: (All Quadrants), No Rigidity: (All Quadrants) Images - Head Head: 1 - Swelling and redness resolving - Dental Dental: 1 - Resolving dental abscess Wound/Burn Recheck Progress - Patient's Progress Pain Medication Addressed: POSITIVE: Not Applicable School/Work Release Addressed: POSITIVE: Not Applicable Re-Examine Time:: 09:15 Re-Examine Comment: Condition improved from yesterday Status: POSITIVE: Improved - Consult Counseled: POSITIVE: Patient, Family ([place] Inspector at jail), RE: DX, RE: Need for F/U Patient Care Time - Estimated PCT Patient Care Time (In Minutes): 15 Vital Signs - Recent Vital Signs Vital Signs: Blood pressure 109/80, heart rate 93, respiratory rate 16, temperature 96.7F, oxygen saturation on room air 97% - VS Reviewed Vital Signs Reviewed: Yes Discharge Clinical Impression: Dental abscess Discharge Disposition: Discharged to Home Condition: Stable Patient Instructions Given at Discharge: Dental Abscess (ED) Additional Instructions: Please return tomorrow at around 8:30 AM for reevaluation and probably another dose of IV antibiotics. Your abscess is improving well. Probably tomorrow will be the last time he'll need IV antibiotics. Please continue your oral clindamycin. Follow-up with a dentist as soon as possible. Return here sooner if condition worsens in any way, or as necessary. Follow Up With: SALONI SWANSON [Primary Care Provider] - (Instructions as above. Return tomorrow for reevaluation. Follow-up with your dentist as soon as possible.)
[2016-11-06 09:36] VITALS: RESP 16; TEMP 96.7
== END 2016-11-06 09:54 | disposition home or self-care (01) ==
LOC: ER 09:05
DX: K04.7 Periapical abscess without sinus (principal)
CPT/HCPCS: 96365; 99282; J0696; J7050

== ENCOUNTER 2016-11-07 08:38 | Emergency (ER) | payer OTHER ==
[2016-11-07] MEDS ORDERED: cefTRIAXone Inj 1 GM in Sodium Chloride 0.9% 100 ML IV ONE (08:43)
[2016-11-07 08:48] VITALS: RESP 11; TEMP 97.9
--- NOTE | 2016-11-07 08:52 | PDOC ---
Wound/Burn Recheck HPI - General Chief Complaint: Nasal/Mouth Problem /Injury Stated Complaint: recheck dental abcess Date Seen by Provider: 11/07/16 Time Seen by Provider: 08:30 Source: POSITIVE: Patient, Other ([employer] from [employer]) Exam Limitations: POSITIVE: No limitations Nurse's Notes Reviewed & Considered: Yes - History of Present Illness Initial Comments: The patient is a 66-year-old female who was seen in the emergency room 4 days ago with a dental abscess involving the left upper first and second molars with secondary cellulitis to the left side of the face. Please refer to previous emergency room notes. Patient was begun on Rocephin IV daily since that time. She was also started on oral clindamycin, 300 mg 4 times daily. She presents to the emergency room for scheduled reevaluation. Have you received a tetanus shot in the past 10 years?: No Body Location Affected: REPORTS: Face Previous Treatment: REPORTS: Antibiotics Given IV, Antibiotics Given PO/RX Treated on (date): 11/03/16 Symptoms Since Procedure: REPORTS: No Complaints, Other (Facial pain, swelling and redness essentially resolved at this time) Severity: Moderate Quality: REPORTS: Other (Dental and facial pain resolved at this time) Any Prior Injuries Related to Current Complaint?: No - Patient Home Medications Home Medications: Home Medications Olanzapine [Zyprexa] 20 mg PO DAILY tab 06/11/16 Benztropine Mesylate [Cogentin] 1 mg PO BID 07/15/16 Clozapine 200 mg PO BID 07/15/16 Bacillus Coagulans [Probiotic] 1 each PO DAILY cap 07/29/16 Calcium Carbonate [Tums] 3 tab PO QHS tab 07/29/16 Famotidine [Pepcid] 1 tab-cap PO DAILY #90 tab 07/29/16 Multivitamin [Daily Siva] 1 tab PO DAILY tab 07/29/16 Polyethylene Glycol 3350 [Miralax] 1 packet PO DAILY #1 box 07/29/16 Clindamycin HCl 300 mg PO Q6H #40 capsule 11/04/16 - Patient Allergies Allergies/Adverse Reactions: Allergies Allergy/AdvReac Type Severity Reaction Status Date / Time Penicillins Allergy Intermediate SYNCOPAL Verified 11/07/16 08:41 EPISODES lithium Allergy VOMITING Verified 11/07/16 08:41 Past Medical History - heen HEENT History: Denies History Cardiovascular History: Denies History Respiratory History: Denies History Gastrointestinal History: GERD Genitourinary History: Denies History Endocrine History: Denies History Musculoskeletal History: Denies History Prosthesis or Implant: No Neurological History: Denies History Blood Disorders: Denies History Psychiatric History: Schizophrenia Additional Psychiatric History: Paranoid Schizophrenia History of Sexually Transmitted Diseases: No Cancer History: Skin Cancer Treatment / Date(s) of Treatment: REMOVAL UNKNOWN WHEN History of MDRO: No History of Other Communicable Diseases: No Alcohol Use: None Substance Use Type: None Previous Surgical History: Yes Type / Date of Surgery: CA REMOVAL LEFT SIDE OF FACE. LEFT ARM SURGERY Anesthesia Reactions: No Malignant Hyperthermia: No Significant Family History: No pertinent family hx Past Medical History Reviewed: Reviewed - No Changes ROS - Limitations ROS Limitations: No Limitations Constitution: REPORTS: Denies Symptoms Cardiovascular: REPORTS: Denies Cardiac Symptoms Respiratory: REPORTS: Denies Resp Symptoms Neurological: REPORTS: Denies Neuro Symptoms Gastrointestinal: REPORTS: Denies GI Symptoms Endocrine: REPORTS: Denies Symptoms Musculoskeletal: REPORTS: Denies MS Symptoms Genitourinary: REPORTS: Denies Symptoms Eyes: REPORTS: Denies Symptoms ENT: REPORTS: Dental Pain (Left upper first and second molars) Skin: REPORTS: Denies Skin Symptoms, Other (Treated for left facial cellulitis secondary to dental abscesses as above) Lympathic: REPORTS: Denies Lympathic Symptoms Immunologic: POSITIVE: Denies Symptoms Psychiatric: POSITIVE: Denies Psych Symptoms Wound/Burn Recheck Exam - General Appearance General Appearance: POSITIVE: Alert, Cooperative, No Acute Distress, No Evidence of Trauma - Neuro/Vascular/Tendon Neuro/Vascular/Tendon: POSITIVE: No Vascular Compromise, Motor Normal, Sensation Normal, ROM Normal, No Tendon Injury, No Pulse Deficit - Skin Skin: POSITIVE: See Diagram - HEENT HEENT: POSITIVE: Head Inspection Nml, Eyes Inspection Nml, Ears Inspection Nml, Nose Inspection Nml, Oral/Dental Inspect. Nml, Pharynx Inspect. Nml, PERRL, EOMI - Pupil Size Pupil Size: 3 mm: Bilateral (PERRLA) - Neck Neck/Back: POSITIVE: Normal Inspection, Non-Tender, Painless ROM - Respiratory / CVS Respiratory / CVS: POSITIVE: Chest Non Tender, No Ecchymosis, Breath Sounds Normal, No Respiratory Distress, Heart Sounds Normal, Regular Rate/Rhythm Peripheral Pulses: Radial (R): 2+, Radial (L): 2+ Images - Head Head: 1 - Redness resolved; tenderness resolved. Swelling almost completely resolved. - Dental Dental: 1 - Dental abscess Wound/Burn Recheck Progress - Patient's Progress Pain Medication Addressed: POSITIVE: Not Applicable School/Work Release Addressed: POSITIVE: Not Applicable Re-Examine Time:: 09:10 Re-Examine Comment: Patient given a final dose of Rocephin IV, 1 g. IV discontinued afterward. 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 Follow-up with your dentist as soon as possible. Return here anytime if condition worsens in any way. Follow Up With: SALONI SWANSON [Primary Care Provider] - (Instructions as above. Follow-up with your dentist as soon as possible. Return here anytime if condition worsens.)
== END 2016-11-07 09:35 | disposition home or self-care (01) ==
LOC: ER 08:38
DX: K04.7 Periapical abscess without sinus (principal); K05.10 Chronic gingivitis, plaque induced
CPT/HCPCS: 96365; 99282; 99283; J0696; J7050

== ENCOUNTER → 2016-11-10 | Outpatient (CLI) | payer OTHER ==
[2016-11-10 09:43] LABS: HEMATOCRIT 40.8 % (37.0-47.0); HEMOGLOBIN 13.1 g/dL (12.0-16.0); MEAN CORPUSCULAR HEMOGLOBIN 29.4 PG (27-31); MEAN CORPUSCULAR HGB CONC 32.1 g/dL (33-37); MEAN CORPUSCULAR VOLUME 91.5 FL (81-99); MEAN PLATELET VOLUME 9.4 FL (7.4-12.2); RED BLOOD COUNT 4.46 10^6/uL (4.20-5.40)
[2016-11-10 10:18] LABS: BAND NEUTROPHILS % 0 % (0-10); BASOPHILS % (MANUAL) 0 % (0-1); EOSINOPHILS % (MANUAL) 0 % (0-8); LYMPHOCYTES % (MANUAL) 35 % (10-50); MONOCYTES % (MANUAL) 8 % (0-12); NEUTROPHILS % (MANUAL) 57 % (50-80); PLATELET MORPHOLOGY COMMENT NORMAL MORPHOLOGY (NORM); RBC MORPHOLOGY COMMENT NORMAL MORPHOLOGY (NORM); WBC MORPHOLOGY COMMENT SEE COMMENTS (NORM)
== END ==
LOC: LAB 09:31
PROVIDERS: ATTEND Psychiatry & Neurology Psychiatry
DX: F25.1 Schizoaffective disorder, depressive type (principal); Z79.899 Other long term (current) drug therapy
CPT/HCPCS: 36415; 85007

== ENCOUNTER → 2016-12-08 | Outpatient (CLI) | payer OTHER ==
[2016-12-08 14:37] LABS: BASOPHILS # (AUTO) 0 10*3/UL; BASOPHILS % (AUTO) 0 % (0-1); EOSINOPHILS # (AUTO) 0 10*3/UL; EOSINOPHILS % (AUTO) 0 % (0-8); HEMATOCRIT 41.4 % (37.0-47.0); HEMOGLOBIN 13.4 g/dL (12.0-16.0); LYMPHOCYTES # (AUTO) 1.76 10*3/uL; MEAN CORPUSCULAR HGB CONC 32.4 g/dL (33-37); MEAN CORPUSCULAR VOLUME 92.6 FL (81-99); MEAN PLATELET VOLUME 9.7 FL (7.4-12.2); MONOCYTES # (AUTO) 0.57 10*3/UL (0.3-0.8); MONOCYTES % (AUTO) 8.7 % (5-15); NEUTROPHILS # (AUTO) 4.22 10*3/UL; NEUTROPHILS % (AUTO) 64.3 % (50-80); RED BLOOD COUNT 4.47 10^6/uL (4.20-5.40)
[2016-12-08 14:52] LABS: PLATELET MORPHOLOGY COMMENT NORMAL MORPHOLOGY (NORM); RBC MORPHOLOGY COMMENT NORMAL MORPHOLOGY (NORM); WBC MORPHOLOGY COMMENT NORMAL MORPHOLOGY (NORM)
== END ==
LOC: LAB 14:25
PROVIDERS: ATTEND Psychiatry & Neurology Psychiatry
DX: F25.1 Schizoaffective disorder, depressive type (principal)
CPT/HCPCS: 36415; 85025

== ENCOUNTER → 2017-01-12 | Outpatient (CLI) | payer OTHER ==
[2017-01-12 10:19] LABS: BASOPHILS # (AUTO) 0 10*3/UL; BASOPHILS % (AUTO) 0 % (0-1); EOSINOPHILS # (AUTO) 0 10*3/UL; EOSINOPHILS % (AUTO) 0 % (0-8); HEMATOCRIT 42.1 % (37.0-47.0); HEMOGLOBIN 13.6 g/dL (12.0-16.0); LYMPHOCYTES # (AUTO) 1.42 10*3/uL; MEAN CORPUSCULAR HEMOGLOBIN 29.6 PG (27-31); MEAN CORPUSCULAR HGB CONC 32.3 g/dL (33-37); MEAN CORPUSCULAR VOLUME 91.5 FL (81-99); MEAN PLATELET VOLUME 9.8 FL (7.4-12.2); MONOCYTES # (AUTO) 0.55 10*3/UL (0.3-0.8); MONOCYTES % (AUTO) 10.9 % (5-15); NEUTROPHILS # (AUTO) 3.09 10*3/UL; PLATELET MORPHOLOGY COMMENT NORMAL MORPHOLOGY (NORM); RBC MORPHOLOGY COMMENT NORMAL MORPHOLOGY (NORM); WBC MORPHOLOGY COMMENT NORMAL MORPHOLOGY (NORM)
== END ==
LOC: LAB 09:58
PROVIDERS: ATTEND Internal Medicine
DX: F25.1 Schizoaffective disorder, depressive type (principal)
CPT/HCPCS: 36415; 85025

== ENCOUNTER → 2017-01-21 | Outpatient (CLI) | payer OTHER ==
[2017-01-21 06:35] LABS: CALCIUM 9.8 mg/dL (8.7-10.7); SERUM ALBUMIN 4.2 g/dL (3.5-4.8)
== END ==
LOC: LAB 06:15
PROVIDERS: ATTEND Psychiatry & Neurology Psychiatry
DX: F25.1 Schizoaffective disorder, depressive type (principal); Z79.899 Other long term (current) drug therapy
CPT/HCPCS: 80053

== ENCOUNTER → 2017-02-09 | Outpatient (CLI) | payer OTHER ==
[2017-02-09 10:21] LABS: BASOPHILS # (AUTO) 0 10*3/UL; BASOPHILS % (AUTO) 0 % (0-1); EOSINOPHILS # (AUTO) 0 10*3/UL; EOSINOPHILS % (AUTO) 0 % (0-8); HEMATOCRIT 41.9 % (37.0-47.0); HEMOGLOBIN 13.9 g/dL (12.0-16.0); MEAN CORPUSCULAR HEMOGLOBIN 30.2 PG (27-31); MEAN CORPUSCULAR HGB CONC 33.2 g/dL (33-37); MEAN CORPUSCULAR VOLUME 91.1 FL (81-99); MEAN PLATELET VOLUME 10.3 FL (7.4-12.2); MONOCYTES # (AUTO) 0.39 10*3/UL (0.3-0.8); MONOCYTES % (AUTO) 8.3 % (5-15); NEUTROPHILS # (AUTO) 3.11 10*3/UL; NEUTROPHILS % (AUTO) 66.2 % (50-80)
[2017-02-09 10:36] LABS: PLATELET MORPHOLOGY COMMENT NORMAL MORPHOLOGY (NORM); RBC MORPHOLOGY COMMENT NORMAL MORPHOLOGY (NORM); WBC MORPHOLOGY COMMENT NORMAL MORPHOLOGY (NORM)
== END ==
LOC: LAB 09:53
PROVIDERS: ATTEND Internal Medicine
DX: F20.0 Paranoid schizophrenia (principal); Z51.81 Encounter for therapeutic drug level monitoring
CPT/HCPCS: 36415; 85025

== ENCOUNTER 2017-03-03 16:34 | Emergency (ER) | payer OTHER ==
[2017-03-03] MEDS ORDERED: NORMAL SALINE 10 ML SYRINGE FLUSH IVP PRN (17:06)
[2017-03-03 17:36] LABS: BASOPHILS % (AUTO) 0 % (0-1); EOSINOPHILS % (AUTO) 0 % (0-8); HEMATOCRIT 39.6 % (37.0-47.0); MEAN CORPUSCULAR HEMOGLOBIN 30.1 PG (27-31); MEAN CORPUSCULAR HGB CONC 32.8 g/dL (33-37); MEAN CORPUSCULAR VOLUME 91.7 FL (81-99); MEAN PLATELET VOLUME 9.9 FL (7.4-12.2); MONOCYTES % (AUTO) 7.2 % (5-15); RED BLOOD COUNT 4.32 10^6/uL (4.20-5.40)
[2017-03-03 17:37] LABS: BASOPHILS # (AUTO) 0 10*3/UL; EOSINOPHILS # (AUTO) 0 10*3/UL; LYMPHOCYTES # (AUTO) 1.36 10*3/uL; MONOCYTES # (AUTO) 0.38 10*3/UL (0.3-0.8); NEUTROPHILS # (AUTO) 3.53 10*3/UL; PLATELET MORPHOLOGY COMMENT NORMAL MORPHOLOGY (NORM); RBC MORPHOLOGY COMMENT NORMAL MORPHOLOGY (NORM); WBC MORPHOLOGY COMMENT NORMAL MORPHOLOGY (NORM)
[2017-03-03 17:43] LABS: BLOOD UREA NITROGEN 24 mg/dL (7-22); BUN/CREATININE RATIO 21.81 (6-20); CALCIUM 9.7 mg/dL (8.7-10.7); EST GLOMERULAR FILTRATION 49 (>60 ml/min/1.73m(2)); SERUM ALBUMIN 4.2 g/dL (3.5-4.8)
[2017-03-03 17:49] LABS: SALICYLATE < 1.0 mg/dl (0-20)
[2017-03-03 18:07] LABS: BILIRUBIN,URINE NEGATIVE (NEG); CLARITY,URINE CLEAR (CLEAR); COLOR,URINE YELLOW; GLUCOSE, URINE (UA) NEGATIVE (NEG); NITRATE,URINE NEGATIVE (NEG); OCCULT BLOOD,URINE NEGATIVE (NEG); PROTEIN,URINE NEGATIVE (NEG); UROBILINOGEN,URINE 0.2 EU/dL (0.2)
[2017-03-03 18:54] LABS: URINE SAMPLE TYPE VOIDED SPECIMEN; URINE SPECIFIC GRAVITY - MAN 1.025
[2017-03-03 18:55] LABS: AMPHETAMINE SCREEN NEGATIVE (NEG); BACTERIA,URINE RARE; CANNABINOID SCREEN,URINE NEGATIVE (NEG); COCAINE SCREEN NEGATIVE (NEG); METHADONE URINE SCREEN NEGATIVE (NEG); METHAMPHETAMINES SCREEN,URINE NEGATIVE (NEG); OPIATE SCREEN,URINE NEGATIVE (NEG); SQUAMOUS EPITHELIAL CELL,UR MODERATE
--- NOTE | 2017-03-03 19:47 | PDOC ---
Altered Mental Status HPI - General Chief Complaint: Abdomen Pain Stated Complaint: hallucinations and delusions Date Seen by Provider: 03/03/17 Time Seen by Provider: 16:40 Source: POSITIVE: Patient, RN/MD, Other ([facility]; prison caregiver) Exam Limitations: POSITIVE: No limitations Nurse's Notes Reviewed & Considered: Yes - History of Present Illness Initial Comments: The patient is a 66 year old female. Patient has a long-standing history of schizophrenia. She lives in a prison here in [place]. According to the patient's nurse at the prison, and the prison counselor, the patient has been becoming progressively delusional and psychotic. Patient's counselor states that the patient is concerned that she will "dissolve in water "and that she is "in love with Murphy Valentine". She also reportedly feels sometimes that there is a "bomb inside of her, which may discharge if she drinks ". Home staff also report that she has been demonstrating episodes of agitation and has been "verbally aggressive "with the prison staff. penitentiary staff report that the patient's psychiatrist, Dr. Mitchell, had requested that the patient be evaluated in the emergency room and, if medically stable, be transferred to [facility]. Patient complains of "anxiety in my legs". She reportedly had complained of some abdominal discomfort to the prison staff, but she denies any abdominal discomfort or any other GI or symptoms at this time. No fevers or chills. No focal neurologic symptoms. No rashes or skin changes. Body Location Affected: REPORTS: Other (Delusions and hallucinations) Timing: REPORTS: Gradual, Getting Worse Duration: >24 hours Severity: Moderate Quality: REPORTS: Other (No apparent pain anywhere) Character of AMS: REPORTS: Aggitated (Intermittently), Other (Delusional and hallucinations) Context: REPORTS: Other (penitentiary resident; history of chronic schizophrenia) FSBS C T TECH (Result in comment): No New Medications (if yes, list): No Patient Normals: REPORTS: Alert, Oriented x3 Associated Symptoms: DENIES: Recent Illness, Fever, Chills, Chest Pain, Neck Pain, Back Pain, Difficulty Breathing, Abdominal Pain, Nausea, Vomiting, New Onset Weakness, Decreas. Ability to Stand, Decreased Ability to Walk, Multiple Falls, Off Balance, Fainting, Dizziness, Involuntary Movements, Seizure, Headache, Other Similar Symptoms Previously: Yes Recent Care Received: REPORTS: Recently Seen, Treated by MD (As above) Any Prior Injuries Related to Current Complaint?: No - Patient Home Medications Home Medications: Home Medications Olanzapine [Zyprexa] 20 mg PO DAILY tab 06/11/16 Calcium Carbonate [Tums] 3 tab PO BID tab 07/29/16 Multivitamin [Daily Siva] 1 tab PO DAILY tab 07/29/16 Benztropine Mesylate [Cogentin] 1 mg PO BID 03/03/17 Clozapine [Clozaril] 100 mg PO QAM 03/03/17 Clozapine [Clozaril] 200 mg PO BEDTIME 03/03/17 Diazepam [Valium] 5 mg PO C DIN 03/03/17 Haloperidol [Haldol] 5 mg PO BID 03/03/17 L.acidoph & Tiffanie Alfredolactis [Probiotic] 1 each PO DAILY 03/03/17 - Patient Allergies Allergies/Adverse Reactions: Allergies Allergy/AdvReac Type Severity Reaction Status Date / Time Penicillins Allergy Intermediate SYNCOPAL Verified 03/03/17 16:50 EPISODES lithium Allergy VOMITING Verified 03/03/17 16:50 Past Medical History - heen HEENT History: Denies History Cardiovascular History: Denies History Respiratory History: Denies History Gastrointestinal History: GERD Genitourinary History: Denies History Endocrine History: Denies History Musculoskeletal History: Denies History Prosthesis or Implant: No Neurological History: Denies History Blood Disorders: Denies History Psychiatric History: Schizophrenia Additional Psychiatric History: Paranoid Schizophrenia History of Sexually Transmitted Diseases: No Female Reproductive History: Denies History Obstetrical History: Denies History : 2 Para: 2 Cancer History: Skin Cancer Treatment / Date(s) of Treatment: REMOVAL UNKNOWN WHEN In Past Year Been Physically Harmed or Verbally Threatened: No History of MDRO: No History of Other Communicable Diseases: No Tobacco Use: Never Smoker Alcohol Use: None Substance Use Type: None Previous Surgical History: Yes Type / Date of Surgery: CA REMOVAL LEFT SIDE OF FACE. LEFT ARM SURGERY Anesthesia Reactions: No Malignant Hyperthermia: No Significant Family History: No pertinent family hx Past Medical History Reviewed: Reviewed - Changes Made ROS - Limitations ROS Limitations: No Limitations Constitution: REPORTS: Denies Symptoms Cardiovascular: REPORTS: Denies Cardiac Symptoms Respiratory: REPORTS: Denies Resp Symptoms Neurological: REPORTS: Denies Neuro Symptoms Gastrointestinal: REPORTS: Denies GI Symptoms Endocrine: REPORTS: Denies Symptoms Musculoskeletal: REPORTS: Denies MS Symptoms Genitourinary: REPORTS: Denies Symptoms Eyes: REPORTS: Denies Symptoms ENT: REPORTS: Denies Symptoms Skin: REPORTS: Denies Skin Symptoms Lympathic: REPORTS: Denies Lympathic Symptoms Immunologic: POSITIVE: Denies Symptoms Psychiatric: POSITIVE: Anxiety, Other (Delusional thinking; some paranoia by history) Altered Mental Physical Exam - General Appearance General Appearance: POSITIVE: Alert, Cooperative, No Acute Distress, No Evidence of Trauma - HEENT HEENT: POSITIVE: Head Inspection Nml, Eyes Inspection Nml, Ears Inspection Nml, Nose Inspection Nml, Oral/Dental Inspect. Nml, Pharynx Inspect. Nml, PERRL, EOMI - Pupil Size Pupil Size: 3 mm: Bilateral (PERRLA) - Neuro/Psych Neurological: POSITIVE: Denies Neuro Symptoms Cranial Nerves: POSITIVE: Normal As Tested, No Evidence of Acute CVA Cerebellar: POSITIVE: Normal As Tested Peripheral Exam: POSITIVE: No Motor Deficits, No Sensory Deficits, Reflexes Normal - Neck Neck: POSITIVE: Supple, Non Tender - Respiratory Respiratory: POSITIVE: No Respiratory Distress, Breath Sounds Normal - Cardiovascular CVS: POSITIVE: Regular Rate and Rhythm, Heart Sounds Normal Peripheral Pulses: Radial (R): 2+, Radial (L): 2+ - Abdomen Abdomen: Soft: (All Quadrants), Normal Bowel Sounds: (All Quadrants), Denies Tenderness: (All Quadrants), No Splenomegaly: (All Quadrants), No Hepatomegaly: (All Quadrants), No Guarding: (All Quadrants), No Rebound: (All Quadrants), No Palpable Pulse: (All Quadrants), No Palpabale Mass: (All Quadrants), No Distention: (All Quadrants), No Rigidity: (All Quadrants) - Skin Skin: POSITIVE: Normal for Race, No Rash, Warm, Dry - Extremities Extremity: Non-Tender: (All Extremities), Normal ROM: (All Extremities), Normal Inspection: (All Extremities) Altered Mental Status - Results Reviewed By Me Lab Results Reviewed: Yes Lab Results:: Laboratory Results 03/03/17 03/03/17 Range/Units 17:25 17:45 WBC 5.27 (4.8-10.8) 10^3/uL RBC 4.32 (4.20-5.40) 10^6/uL Hgb 13.0 (12.0-16.0) g/dL Hct 39.6 (37.0-47.0) % MCV 91.7 (81-99) FL MCH 30.1 (27-31) PG MCHC 32.8 L (33-37) g/dL RDW Std Deviation 49.1 (39-50) fL RDW Coeff of Fawad 15.0 H (11.5-14.5) % Plt Count 216 (140-350) 10*3/uL MPV 9.9 (7.4-12.2) FL Immature Gran % (Auto) 0 (0-5) % Neut % (Auto) 67.0 (50-80) % Lymph % (Auto) 25.8 (10-50) % [place] % (Auto) 7.2 (5-15) % Eos % (Auto) 0 (0-8) % Baso % (Auto) 0 (0-1) % Immature Gran # (Auto) 0 10*3/UL Neut # (Auto) 3.53 10*3/UL Lymph # (Auto) 1.36 10*3/uL [place] # (Auto) 0.38 (0.3-0.8) 10*3/UL Eos # (Auto) 0 10*3/UL Baso # (Auto) 0 10*3/UL WBC Morphology Comment Normal morphology (NORM) Plt Morphology Comment Normal morphology (NORM) RBC Morph Comment Normal morphology (NORM) Sodium 139 (135-145) meq/L Potassium 3.9 (3.8-5.2) meq/L Chloride 104 (98-112) meq/L Carbon Dioxide 26 (23-33) meq/L Anion Gap 9 (5-20) BUN 24 H (7-22) mg/dL Creatinine 1.1 (0.50-1.20) mg/dL Estimated GFR 49 (>60 ml/min/1.73m(2)) BUN/Creatinine Ratio 21.81 H (6-20) Glucose 102 (78-110) mg/dL Calculated Osmolality 291.0 (267-292) mOsm/kg Calcium 9.7 (8.7-10.7) mg/dL Total Bilirubin 0.6 (0.3-1.2) mg/dL AST 29 (8-39) IU/L ALT 35 (9-52) IU/L Alkaline Phosphatase 79 (38-126) IU/L Total Protein 6.8 (6.1-8.0) g/dL Albumin 4.2 (3.5-4.8) g/dL Globulin 2.6 (2.50-4.10) g/dL Albumin/Globulin Ratio 1.60 (1.3-2.0) mg/g TSH 0.962 (0.2700-4.2000) uIU/mL Ur Collection Type Voided specimen Urine Color Yellow Urine Clarity Clear (CLEAR) Urine pH 5.0 (5.0-8.5) Ur Specific [place] 1.025 (1.005-1.030) U Specif Grav (Refrac) 1.025 Urine Protein Negative (NEG) mg/dl Urine Glucose (UA) Negative (NEG) mg/dL Urine Ketones Negative (NEG) Urine Occult Blood Negative (NEG) Urine Nitrate Negative (NEG) Urine Bilirubin Negative (NEG) Urine Urobilinogen 0.2 (0.2) EU/dL Ur Leukocyte Esterase Trace (NEG) Urine RBC None (NONE) /hpf Urine WBC 5-7 (NONE) Ur Squamous Epith Cells Moderate (NONE) Ur Renal Epithelial Cell None (NONE) Urine Crystals None Urine Bacteria Rare (NONE) Urine Casts None (NONE) Urine Mucus None (NONE) Urine Trichomonas None (NONE) Urine Yeast None (NONE) Ur Culture Indicated? Culture not set Salicylates < 1.0 (0-20) mg/dl Urine Opiates Screen Negative (NEG) Ur Buprenorphine Negative (NEG) Ur Oxycodone Screen Negative (NEG) Urine Methadone Screen Negative (NEG) Ur Propoxyphene Screen Negative (NEG) Acetaminophen < 10.0 (0-30) ug/mL Barbiturate Screen Negative (NEG) U Tricyclic Antidepress Positive H (NEG) Phencyclidine Screen Negative (NEG) Amphetamines Screen Negative (NEG) U Methamphetamines Scrn Negative (NEG) Benzodiazepines Screen Positive H (NEG) Cocaine Screen Negative (NEG) U Marijuana (THC) Screen Negative (NEG) Serum Alcohol < 10 (0-10) mg/dL - Patient's Progress Pain Medication Addressed: POSITIVE: Not Applicable School/Work Release Addressed: POSITIVE: Not Applicable Re-Examine Time:: 19:35 Re-Examine Comment: Patient remained cooperative with no agitation in the emergency room. Patient was evaluated by counselor from [employer], who has coordinated patient's transfer to [facility]. Status: POSITIVE: Unchanged, Re-Examined - Consult Consult (If Yes, Name of Consulting MD & Time Called): Yes ([employer], [id number]) Consulting MD will see pt:: POSITIVE: Recommended Transfer Counseled: POSITIVE: Patient, RE: Lab Results, RE: DX, RE: Need for F/U Patient Care Time - Estimated PCT Patient Care Time (In Minutes): 50 Vital Signs - Recent Vital Signs Vital Signs: Vital Signs (Last 8 hours) Temp Pulse Resp BP Pulse Ox 03/03/17 16:34 96.8 F 89 16 122/86 95 - VS Reviewed Vital Signs Reviewed: Yes Discharge Clinical Impression: Acute episode of schizophrenia with history of multiple episodes Discharge Disposition: Transferred to Psychiatric Facility Condition: Stable Date Decision to Transfer to Another Facility: 03/03/17 Time Decision to Transfer to Another Facility: 19:35
[2017-03-04 05:52] VITALS: RESP 18; TEMP 97.9
== END 2017-03-03 23:24 | disposition home or self-care (01) ==
LOC: ER 16:34
DX: F20.0 Paranoid schizophrenia (principal); R45.1 Restlessness and agitation; F22 Delusional disorders
CPT/HCPCS: 36415; 80053; 80305; 80320; 80329; 81001; 81003; 84443; 85025; 90791; 99284